=== PATIENT | male | born 1965 | race American Indian/Alaskan Native ===

== ENCOUNTER 2017-09-01 23:34 | Emergency (ER) | payer MEDICAID ==
[2017-09-01 23:55] VITALS: RESP 18
--- NOTE | 2017-09-02 00:45 | C.PDOC ---
History Of Present Illness Pt is intoxicated and admits to drinking alcohol tonight. He states that he fell. - HPI Time Seen by Provider: 09/01/17 23:55 Chief Complaint (Nursing): Trauma History Per: Patient, Other (Friend) History/Exam Limitations: intoxication Onset/Duration Of Symptoms: Other (tonight) Location Of Injury: Left: Hip, Knee, Shoulder Severity: Moderate Additional History Per: Prior Records Past Medical History Reviewed: Historical Data, Nursing Documentation, Vital Signs Vital Signs: Last Vital Signs Temp 97.5 F L 09/01/17 23:49 Pulse 62 09/01/17 23:49 Resp 18 09/01/17 23:49 BP 142/90 09/01/17 23:49 Pulse Ox 100 09/02/17 00:47 - Medical History PMH: Anxiety, HTN, Post Traumatic Stress Disorder Other PMH: "Liver problems". Alcohol abuse. Surgical History: No Surg Hx Family History: States: Unknown Family Hx - Social History Hx Alcohol Use: Yes (3-4 BEERS) Hx Substance Use: No - Immunization History Hx Tetanus Toxoid Vaccination: No Hx Influenza Vaccination: No Hx Pneumococcal Vaccination: No Review Of Systems Constitutional: Negative for: Fever Cardiovascular: Negative for: Chest Pain Respiratory: Negative for: Shortness of Breath Gastrointestinal: Negative for: Vomiting, Abdominal Pain Musculoskeletal: Negative for: Neck Pain Skin: Positive for: Jaundice Neurological: Negative for: Weakness, Numbness, Headache Physical Exam - Physical Exam Appears: No Acute Distress, Chronically Ill, Other (AOB) Skin: Warm, Dry Head: Atraumatic, Normacephalic Eye(s): bilateral: PERRL, EOMI, Scleral Icterus Neck: Normal ROM, No Midline Cervical Tenderness, No Step Off Deformity, Supple Chest: Symmetrical, No Deformity Cardiovascular: Rhythm Regular Respiratory: Normal Breath Sounds, No Accessory Muscle Use Gastrointestinal/Abdominal: Soft, No Tenderness, Ascites Back: No Vertebral Tenderness Extremity: Normal ROM, Tenderness (left shoulder, left hip, and left knee) Neurological/Psych: Oriented x3, Normal Motor, Normal Sensation Gait: Unable To Assess ED Course And Treatment O2 Sat by Pulse Oximetry: 100 Pulse Ox Interpretation: Normal Disposition - Disposition Disposition Time: 00:51 Condition: FAIR - Clinical Impression Clinical Impression: Alcohol intoxication, Fall Physician Patient Turnover Patient Signed Over To: Shaq Berry Handoff Comments: to f/up labs and x-rays.
[2017-09-02 00:58] LABS: HEMOGLOBIN 9.8 g/dL (12.0-18.0); MEAN CORPUSCULAR HEMOGLOBIN 24.6 pg (27.0-31.0)
[2017-09-02 01:06] LABS: CALCIUM 7.7 mg/dl (8.6-10.4); GFR AFRICAN-AMERICAN > 60; GFR NON-AFRICAN AMERICAN > 60; INR 1.6; LIPASE 245 U/L (23-300); PROTHROMBIN TIME 17.1 SECONDS (9.7-12.2)
[2017-09-02 01:08] LABS: ALB/GLOB RATIO 0.7 (1.0-2.1); ALT/SGPT 35 U/L (21-72); AST/SGOT 159 U/L (17-59); BLOOD UREA NITROGEN 4 mg/dL (9-20)
[2017-09-02 01:13] LABS: EOS % 0.7 % (0.0-4.0); LYMPH # 0.7 K/uL (1.0-4.3); LYMPH % 14.7 % (20.0-40.0); MEAN CELL VOLUME 78.3 fL (80.0-94.0); MEAN CORPUSCULAR HGB CONC 31.4 g/dL (33.0-37.0); MEAN PLATELET VOLUME 8.1 fL (7.2-11.7); MONO % 22.1 % (0.0-10.0); NEUT # 2.8 K/uL (1.8-7.0); NEUT % 61.5 % (50.0-75.0); NRBC % 0.6 % (0.0-2.0); PLATELET COUNT 127 K/uL (130-400); RBC 3.97 Mil/uL (4.40-5.90); RED CELL DISTRIBUTION WIDTH 20.8 % (11.5-14.5); WHITE BLOOD COUNT 4.6 K/uL (4.8-10.8)
[2017-09-02 01:53] LABS: BASOPHIL 1 % (0-2); EOSINOPHIL 1 % (0-4); LYMPHOCYTE 19 % (20-40); MONOCYTE 11 % (0-10); NEUTROPHIL 61 % (50-75); PLATELET ESTIMATE SLIGHTLY DECREASED (NORMAL); REACTIVE LYMPHOCYTES 7 % (0-0); TOTAL CELLS COUNTED 100
[2017-09-02 01:55] LABS: ANISOCYTOSIS MODERATE; LARGE PLATELETS PRESENT; OVALOCYTES SLIGHT; POLYCHROMIC SLIGHT; TARGET CELLS MODERATE
[2017-09-02 01:56] LABS: TEARDROP CELLS SLIGHT
[2017-09-02 01:57] LABS: GIANT PLATELETS PRESENT; HYPOCHROMIC SLIGHT; MICROCYTOSIS SLIGHT
[2017-09-02 03:20] VITALS: BP 110/73
[2017-09-02 05:19] VITALS: PULSE 70; TEMP 97.8; O2SAT 95
--- NOTE | 2017-09-02 09:25 | RAD ---
PROCEDURE: Left Knee Radiographs. HISTORY: Pain. COMPARISON: None. FINDINGS: BONES: Normal. No fracture. JOINTS: Normal. No osteoarthritis. JOINT EFFUSION: None. OTHER FINDINGS: None. IMPRESSION: Normal radiographs of the left knee.
--- NOTE | 2017-09-02 09:26 | RAD ---
PROCEDURE: Left Hip X-ray Radiographs. HISTORY: Pain s/p fall tonight COMPARISON: None. FINDINGS: BONES: Normal. No fracture. JOINTS: Normal. SOFT TISSUES: Normal. OTHER FINDINGS: None. IMPRESSION: Normal left hip radiographs.
--- NOTE | 2017-09-02 09:26 | RAD ---
PROCEDURE: Radiographs of the Left Shoulder HISTORY: Pain s/p fall tonight COMPARISON: No prior. FINDINGS: BONES: Normal. No fracture. JOINTS: Minimal acromioclavicular degenerative arthritis. Normal glenohumeral articulation. SOFT TISSUES: Normal. OTHER FINDINGS: None. IMPRESSION: No fracture. Minimal acromioclavicular degenerative arthritis.
--- NOTE | 2017-09-02 09:27 | RAD ---
PROCEDURE: CHEST RADIOGRAPH, 1 VIEW HISTORY: s/p fall tonight COMPARISON: None available. FINDINGS: LUNGS: Clear. PLEURA: No pneumothorax or pleural fluid seen. CARDIOVASCULAR: Normal. OSSEOUS STRUCTURES: No significant abnormalities. VISUALIZED UPPER ABDOMEN: Normal. OTHER FINDINGS: None. IMPRESSION: No active disease.
== END 2017-09-02 05:33 | disposition home or self-care (01) ==
LOC: C.ER 23:34
DX: F10.129 Alcohol abuse with intoxication, unspecified (principal); I10 Essential (primary) hypertension
CPT/HCPCS: 71045; 73030; 73502; 73562; 80053; 80320; 83690; 85025; 85610; 85730; 96374; 99285; J1885